=== PATIENT | female | born 1990 | race Two or more races ===

== ENCOUNTER 2022-01-24 11:20 | Outpatient (REF) | payer OTHER, SELFPAY ==
[2022-01-24 14:10] LABS: MANUAL DIFF FLAG NO
[2022-01-24 14:27] LABS: Basophils Percent Auto 0.3 % (0-2); Eosinophils Absolute Auto 0.2 X10*3/uL (0.0-0.4); Eosinophils Percent Auto 1.8 % (0-4); Hematocrit 41.5 % (37.0-47.0); Hemoglobin 13.1 g/dl (12.0-16.0); Imm Gran Abs Auto 0.03 X10*3/uL (0.00-0.03); Imm Gran Pct Auto 0.3 % (0.0-0.4); Lymphocytes Absolute Auto 2.4 X10*3/uL (1.2-4.9); Lymphocytes Percent Auto 27.5 % (20-40); Mean Corpuscular HGB Conc 31.6 g/dl (31.0-35.0); Mean Corpuscular Hemoglobin 27.6 pg (27.0-33.0); Mean Corpuscular Volume 87.4 fL (80.0-98.0); Mean Platelet Volume 10.2 fL (9.4-12.3); Monocytes Absolute Auto 0.8 X10*3/uL (0.1-1.2); Monocytes Percent Auto 8.6 % (2-11); Neutrophils Absolute Auto 5.4 x10*3/uL (2.0-8.3); Neutrophils Percent Auto 61.5 % (45-73); Platelet Count 244 X10*3/uL (160-400); Red Blood Count 4.75 X10*6/uL (4.20-5.50); Red Cell Distribution Width 13.6 % (11.0-16.0); White Blood Count 8.9 X10*3/uL (4.8-10.8)
[2022-01-24 16:48] LABS: Alanine Aminotransferase 17 U/L (0-31); Albumin Level 4.2 g/dL (3.5-5.0); Alkaline Phosphatase 47 U/L (39-117); Anion Gap 10 (12-20); Aspartate Amino Transferase 17 U/L (5-31); Bilirubin Total 0.3 mg/dL (0.0-1.0); Blood Urea Nitrogen 8 mg/dL (9-16); Carbon Dioxide 28 mmol/L (22-29); Chloride 103 mmol/L (96-108); Cholesterol 160 mg/dL; Estimated Glomerular Filt Rate > 60; Glucose Fasting 82 mg/dL (60-99); HDL Cholesterol 54 mg/dL; LDL Cholesterol Calculated 95 mg/dl; Potassium 4.1 mmol/L (3.3-5.1); Sodium 137 mmol/L (135-145); TSH reflex Free T4 1.27 uIU/mL (0.32-4.0); Total Protein 7.4 g/dL (6.5-8.0); Triglycerides 57 mg/dL
[2022-01-27 18:08] LABS: Herpes Simplex Type 1 IgG <0.90 index; Herpes Simplex Type 2 IgG 5.81 index
== END 2022-01-24 11:21 | disposition home or self-care (01) ==
LOC: HO.HMGCLDS 11:20
PROVIDERS: PCP Internal Medicine; Visit Provider Internal Medicine
DX: Z00.01 Encounter for general adult medical examination with abnormal findings (principal); E66.01 Morbid (severe) obesity due to excess calories; Z86.19 Personal history of other infectious and parasitic diseases
CPT/HCPCS: 36415; 80053; 80061; 84443; 85025; 86695; 86696

== ENCOUNTER 2022-10-24 07:49 | Outpatient (AMB) | payer BC, MEDICAID, SELFPAY ==
--- NOTE | 2022-10-24 07:37 | MHC.PC.OV ---
Intake Visit Reasons: discuss increase anxiety meds/[phone] iphone Allergies No Known Allergies Allergy (Verified 01/24/22 11:10) Medication List - Last Reconciled 10/24/22 by Debbie Pink MD escitalopram oxalate 10 mg PO DAILY valacyclovir 500 mg PO Q12H Tobacco use date assessed: 01/24/22 HPI discuss increase anxiety meds/[phone] iphone HPI Details Patient is 32-year-old female this is a telemedicine video conference Patient suffers from anxiety, she was last seen January of last year Patient was under the impression that she just need to be seen annually. She is currently taking Lexapro 5 mg Patient recently moved she is also having a new relationship and having other stressors in her life Feeling more anxious and gets angry easily. She is requesting if we can increase the medication to 10 mg. I have sent 10 mg tablets for the patient We will book another follow-up appointment in 3 weeks. PFSH Family History Father Mental health disorder Social History Housing: House Patient Tobacco Use Status: Never used Tobacco e-Cigarette/Vaping Use: Currently Using Current occupational status: employed Cognitive needs: No Hearing needs: No Vision needs: Yes (contacts) Questionnaire Thrive Questionnaire Date Thrive assessed: 01/24/22 ALECIA-7 AMB Questionnaire ALECIA-7 Date ALECIA - 7 assessed: 01/24/22 Source: Developed by Drs. Carlos Villagran, Lisa Sin, Alexandro Martin and colleagues, with an educational alex from [employer]. Review of Systems Const Denies chills and Denies fever(s) ENT Denies epistaxis and Denies nasal discharge Card Denies chest pain Resp Denies chest congestion, Denies cough and Denies hemoptysis GI Denies diarrhea and Denies nausea Skin/Breast Denies rash Neuro Reports no additional complaints Psych Reports no additional complaints Endo Reports no additional complaints Physical exam (Primary Care) Tobacco/Smoking Status: Tobacco use Status Tobacco use date assessed 01/24/22 10/24/22 07:41 Patient Tobacco Use Status Never used Tobacco 10/24/22 07:41 e-Cigarette/Vaping Use Currently Using 10/24/22 07:41 Thrive Assessment: Date of Thrive Assessment Date Thrive assessed 01/24/22 10/24/22 07:41 Assessment and Plan Assessment & Plan (1) Anxiety, generalized: Code(s): F41.1 - Generalized anxiety disorder (2) Excessive anger: Code(s): R45.4 - Irritability and anger (3) Stress: Code(s): F43.9 - Reaction to severe stress, unspecified Plan Patient is 32-year-old female this is a telemedicine video conference Patient suffers from anxiety, she was last seen January of last year Patient was under the impression that she just need to be seen annually. She is currently taking Lexapro 5 mg Patient recently moved she is also having a new relationship and having other stressors in her life Feeling more anxious and gets angry easily. She is requesting if we can increase the medication to 10 mg. I have sent 10 mg tablets for the patient We will book another follow-up appointment in 3 weeks. Medications: Changed From escitalopram oxalate (Lexapro) 5 mg PO DAILY 30 tabs 0RF To escitalopram oxalate 10 mg PO DAILY 30 tabs 0RF Coding Level of Care Code Tele Est Pt Level 3 (81688) Diagnoses Anxiety, generalized F41.1 Excessive anger R45.4 Stress F43.9
== END 2022-10-24 08:48 | disposition home or self-care (01) ==
LOC: HO.HMGC 07:49
PROVIDERS: PCP Internal Medicine; Visit Provider Internal Medicine
DX: F41.1 Generalized anxiety disorder (principal); R45.4 Irritability and anger; F43.9 Reaction to severe stress, unspecified
CPT/HCPCS: 99213

== ENCOUNTER 2022-11-14 07:37 | Outpatient (AMB) | payer BC, MEDICAID, SELFPAY ==
--- NOTE | 2022-11-14 07:38 | MHC.PC.OV ---
Intake Visit Reasons: Follow up Allergies No Known Allergies Allergy (Verified 11/14/22 07:42) Medication List - Last Reconciled 11/14/22 by Debbie Pink MD escitalopram oxalate 10 mg PO DAILY valacyclovir 500 mg PO Q12H Tobacco use date assessed: 11/14/22 Dental Screening Dental Screen Date: 11/14/22 Did you have a dental visit in the last 12 months?: Yes Did you have a dental problem in the last 6 months where you did not have access to dental care?: No Was dental information given to patient?: Patient has dentist HPI Follow up HPI Details Patient is a 32-year-old female this is a telemedicine we do conference follow-up Patient verbalized to feeling more anxious and depressed and having difficulty controlling her emotions last visit 3 weeks ago I started her on Lexapro 5 mg she is not taking 10. She is feeling will better but we can titrate the dose further as per patient's wishes. I have sent 20 mg tablets patient may finish the 1 she has at home by taking 1.5 tablet that will be 15 mg and then start 20 mg. She will get back to me if there are any problems taking 20 mg. Otherwise she is to continue that for next 4 months We will make a follow-up appointment in 4 months. PFSH Family History Father Mental health disorder Social History Housing: House Patient Tobacco Use Status: Never used Tobacco e-Cigarette/Vaping Use: Currently Using Current occupational status: employed Cognitive needs: No Hearing needs: No Vision needs: Yes (contacts) Questionnaire PHQ-9 Over the last 2 weeks, how often have you been bothered by any of the following problems? 1. Little interest or pleasure in doing things: several days 2. Feeling down, depressed, or hopeless: not at all 3. Trouble falling or staying asleep, or sleeping too much: several days 4. Feeling tired or having little energy: not at all 5. Poor appetite or overeating: not at all 6. Feeling bad about yourself - or that you are a failure or have let yourself or your family down: not at all 7. Trouble concentrating on things, such as reading the newspaper or watching television: not at all 8. Moving or speaking so slowly that other people could have noticed. Or the opposite - being so fidgety or restless that you have been moving around a lot more than usual: not at all 9. Thoughts that you would be better off or of hurting yourself in some way: not at all Total score: 2 Depression Screening Interpretation: Negative 86167 - PHQ-9 Billing: Yes Source: Developed by Drs. Carlos Villagran, Lisa Sin, Alexandro Martin and colleagues, with an educational alex from [employer]. Thrive Questionnaire Date Thrive assessed: 11/14/22 I am a: Patient What is your living situation today?: I have a steady place to live Within the past 12 months, did the food you bought not last and you didn't have the money to get more?: Never true Within the past 12 months, did you worry whether your food would run out before you got money to buy more?: Never true Do you have trouble paying for medicines?: No Do you have trouble getting transportation to medical appointments?: No Do you have trouble paying your heating and electricity bill?: No Do you have trouble taking care of your child, family member or friend?: No Do you have trouble with day-to-day activities such as bathing, preparing meals, shopping, managing finances, etc.?: No Are you currently unemployed and looking for a job?: No Are you interested in more education?: No Please select the resources that you would like help with: None Currently or been in a relationship where the following occur: no concerns reported AUDIT C Alcohol Use Questionnaire (AUDIT-C) 1. How often do you have a drink containing alcohol?: Monthly or less 2. How many drinks containing alcohol do you have on a typical day when you are drinking?: 1 or 2 3. How often do you have six or more drinks on one occasion?: Never Total Score: 1 ALECIA-7 AMB Questionnaire ALECIA-7 Date ALECIA - 7 assessed: 11/14/22 Feeling nervous, anxious, or on edge: 0 = Not at all Not being able to stop or control worryin = Not at all Worrying too much about different things: 0 = Not at all Trouble relaxin = Not at all Being so restless that it is hard to sit still: 0 = Not at all Becoming easily annoyed or irritable: 0 = Not at all Feeling afraid as if something awful might happen: 0 = Not at all Total ALECIA-7 score (0-4 normal; 5-9 mild; 10-14 moderate; 15-21 severe): 0 Source: Developed by Drs. Carlos Villagran, Lisa Sin, Alexandro Martin and colleagues, with an educational alex from [employer]. Review of Systems Const Denies chills and Denies fever(s) ENT Denies epistaxis and Denies nasal discharge Card Denies chest pain Resp Denies chest congestion, Denies cough and Denies hemoptysis GI Denies diarrhea and Denies nausea Skin/Breast Denies rash Neuro Reports no additional complaints Psych Reports no additional complaints Endo Reports no additional complaints Physical exam (Primary Care) Tobacco/Smoking Status: Tobacco use Status Tobacco use date assessed 11/14/22 11/14/22 07:43 Patient Tobacco Use Status Never used Tobacco 11/14/22 07:43 e-Cigarette/Vaping Use Currently Using 11/14/22 07:38 PHQ-9: PHQ-9 Score PHQ-9: Total score 2 11/14/22 07:43 Depression Screening Interpretation: Negative Thrive Assessment: Date of Thrive Assessment Date Thrive assessed 11/14/22 11/14/22 07:43 Currently or been in a relationship where the following occur: no concerns reported Telehealth Telehealth Location of provider rendering services: practice address Location of patient: address on file Patient Identification confirmed using: Name, : Yes Telehealth method: video Patient verbally consented to treatment: Yes Patient verbally consented to billing insurance company: Yes Patient informed of any privacy concerns related to visit: Yes Minutes spent on Phone/Video with Pt.: 13 Assessment and Plan Assessment & Plan (1) Anxiety, generalized: Code(s): F41.1 - Generalized anxiety disorder (2) Excessive anger: Code(s): R45.4 - Irritability and anger Plan Patient is a 32-year-old female this is a telemedicine we do conference follow-up Patient verbalized to feeling more anxious and depressed and having difficulty controlling her emotions last visit 3 weeks ago I started her on Lexapro 5 mg she is not taking 10. She is feeling will better but we can titrate the dose further as per patient's wishes. I have sent 20 mg tablets patient may finish the 1 she has at home by taking 1.5 tablet that will be 15 mg and then start 20 mg. She will get back to me if there are any problems taking 20 mg. Otherwise she is to continue that for next 4 months We will make a follow-up appointment in 4 months. Medications: New escitalopram oxalate (Lexapro) 20 mg PO DAILY 90 tabs 0RF Discontinued escitalopram oxalate Discontinued Reason: Doctor's Order 10 mg PO DAILY 30 tabs 0RF Coding Level of Care Code Tele Est Pt Level 3 (49154) Diagnoses Anxiety, generalized F41.1 Excessive anger R45.4
== END 2022-11-14 08:37 | disposition home or self-care (01) ==
PROVIDERS: PCP Internal Medicine; Visit Provider Internal Medicine
DX: F41.1 Generalized anxiety disorder (principal); R45.4 Irritability and anger
CPT/HCPCS: 99213

== ENCOUNTER 2022-12-19 11:04 | Outpatient (AMB) | payer BC, MEDICAID, SELFPAY ==
[2022-12-19 11:05] VITALS: BP 128/86; PULSE 83; O2SAT 97; BMI 40.1
--- NOTE | 2022-12-19 11:05 | MHC.PC.OV ---
Vital Signs 12/19/22 11:05 Height 5 ft 5 in Weight 241 lb BMI 40.1 BP 128/86 Blood Pressure Location Rt brachial Position Sitting Pulse 83 Pulse Source Pulse Oximeter Pulse Oximetry (%) 97 Oxygen Delivery Method Room Air Intake Visit Reasons: pe Allergies No Known Allergies Allergy (Verified 12/19/22 11:06) Medication List - Last Reconciled 12/19/22 by Debbie Pink MD escitalopram oxalate (Lexapro) 20 mg PO DAILY valacyclovir 500 mg PO Q12H Tobacco use date assessed: 12/19/22 Dental Screening Dental Screen Date: 12/19/22 Did you have a dental visit in the last 12 months?: Yes Did you have a dental problem in the last 6 months where you did not have access to dental care?: No Was dental information given to patient?: Patient has dentist HPI pe HPI Details Patient is 32-year-old female came in today for physical examination Anxiety and depression is better she is now on Lexapro 20 mg which is a good dose for her I have sent refill for another 90 days patient will return in 6 months for follow-up on that or earlier if needed She is also requesting a script for hydrocortisone 2.5 % that she use on [employer] [facility] That was started by the user experience architect. BMI is elevated patient need to lose weight she is working on it. Labs order placed to be done fasting by the end of January Patient is established with OBGYN, breast exam and Pap smear through them Physical exam 1 year, follow-up 6 months PFSH Family History Father Mental health disorder Social History Housing: House Patient Tobacco Use Status: Never used Tobacco e-Cigarette/Vaping Use: Currently Using service: No Current occupational status: employed Cognitive needs: No Hearing needs: No Vision needs: Yes (contacts) Questionnaire PHQ-9 Over the last 2 weeks, how often have you been bothered by any of the following problems? 1. Little interest or pleasure in doing things: not at all 2. Feeling down, depressed, or hopeless: not at all 3. Trouble falling or staying asleep, or sleeping too much: several days 4. Feeling tired or having little energy: several days 5. Poor appetite or overeating: not at all 6. Feeling bad about yourself - or that you are a failure or have let yourself or your family down: several days 7. Trouble concentrating on things, such as reading the newspaper or watching television: several days 8. Moving or speaking so slowly that other people could have noticed. Or the opposite - being so fidgety or restless that you have been moving around a lot more than usual: not at all 9. Thoughts that you would be better off or of hurting yourself in some way: not at all Total score: 4 Depression Screening Interpretation: Negative Depression Screening Done: Yes 49348 - PHQ-9 Billing: Yes Source: Developed by Drs. Carlos Villagran, Lisa Sin, Alexandro Martin and colleagues, with an educational alex from [employer]. Thrive Questionnaire Date Thrive assessed: 12/19/22 I am a: Patient What is your living situation today?: I have a steady place to live Within the past 12 months, did the food you bought not last and you didn't have the money to get more?: Never true Within the past 12 months, did you worry whether your food would run out before you got money to buy more?: Never true Do you have trouble paying for medicines?: No Do you have trouble getting transportation to medical appointments?: No Do you have trouble paying your heating and electricity bill?: No Do you have trouble taking care of your child, family member or friend?: No Do you have trouble with day-to-day activities such as bathing, preparing meals, shopping, managing finances, etc.?: No Are you currently unemployed and looking for a job?: No Are you interested in more education?: No AUDIT C Alcohol Use Questionnaire (AUDIT-C) 1. How often do you have a drink containing alcohol?: Monthly or less 2. How many drinks containing alcohol do you have on a typical day when you are drinking?: 1 or 2 3. How often do you have six or more drinks on one occasion?: Never Total Score: 1 Score Reviewed/Action Taken: No ALECIA-7 AMB Questionnaire ALECIA-7 Date ALECIA - 7 assessed: 12/19/22 Feeling nervous, anxious, or on edge: 0 = Not at all Not being able to stop or control worryin = Several days Worrying too much about different things: 1 = Several days Trouble relaxin = Several days Being so restless that it is hard to sit still: 0 = Not at all Becoming easily annoyed or irritable: 1 = Several days Feeling afraid as if something awful might happen: 1 = Several days Total ALECIA-7 score (0-4 normal; 5-9 mild; 10-14 moderate; 15-21 severe): 5 Source: Developed by Drs. Carlos Villagran, Lisa Sin, Alexandro Martin and colleagues, with an educational alex from [employer]. ALECIA-7 Assessment Billing ALECIA-7 Assessment Tool: ALECIA-7 Assessment 66409 Review of Systems Const Denies chills, Denies fever(s) and Denies headache(s) Eyes Denies blurry vision ENT Denies headache(s), Denies nasal discharge, Denies nasal obstruction, Denies odynophagia and Denies sinus pain Card Denies chest pain at rest and Denies chest pain with activity Resp Denies cough and Denies hemoptysis GI Denies diarrhea, Denies odynophagia, Denies vomiting and Denies hematemesis Reports as per HPI Musc Denies abnormal gait Skin/Breast Reports as per HPI Neuro Denies Neuro-related abnormal movements, Denies Abnormal speech present, Denies abnormal gait, Denies headache(s) and Denies Sensory deficit (Neuro) Psych Denies mood swings and Denies paranoia Endo Reports as per HPI Larry/Lymph Reports as per HPI Aller/Immun Reports as per HPI Physical exam (Primary Care) Vital Signs: Last Vital Signs Pulse 83 12/19/22 11:05 BP 128/86 12/19/22 11:05 Pulse Ox 97 12/19/22 11:05 Oxygen Delivery Method Room Air 12/19/22 11:05 BMI result Body Mass Index 40.1 Tobacco/Smoking Status: Tobacco use Status Tobacco use date assessed 12/19/22 12/19/22 11:09 Patient Tobacco Use Status Never used Tobacco 12/19/22 11:09 e-Cigarette/Vaping Use Currently Using 12/19/22 11:09 PHQ-9: PHQ-9 Score PHQ-9: Total score 4 12/19/22 11:39 Depression Screening Interpretation: Negative Thrive Assessment: Date of Thrive Assessment Date Thrive assessed 12/19/22 12/19/22 11:34 Const General: cooperative, comfortable and no acute distress Orientation/consciousness: patient oriented x3 HENMT Head: Yes normocephalic and Yes atraumatic Eyes General: appearance normal, both eyes and all related structures Pupils: Equal, round and reactive pupils present EOM: EOMs intact bilaterally Neck Neck: Yes supple and No lymphadenopathy Thyroid: Thyroid normal Lymphatic: no lymphadenopathy noted Resp Effort & Inspection: normal respiratory effort and able to speak in complete sentences Auscultation: clear to auscultation bilaterally Cardio Heart sounds: S1 normal heart sound present and S2 normal heart sound present GI Palpation (GI): Soft to palpation and nontender Auscultation: normal bowel sounds General: Yes no CVA tenderness Back/Spine/Pelvis Back: no CVA tenderness Skin General skin exam: elasticity normal and turgor normal Neuro General: patient oriented x3 and gait normal Cranial nerves: Yes Equal, round and reactive pupils present Speech: No Abnormal speech present Sensory Exam: No Sensory deficit (Neuro) Coordination: tandem gait normal and Romberg test negative Extrem General: Yes normal exam except as noted and No edema Assessment and Plan Assessment & Plan (1) Encounter for general adult medical examination with abnormal findings: Code(s): Z00.01 - Encounter for general adult medical examination with abnormal findings (2) Morbid obesity due to excess calories: Code(s): E66.01 - Morbid (severe) obesity due to excess calories (3) Anxiety, generalized: Code(s): F41.1 - Generalized anxiety disorder (4) Depression, major, recurrent, mild: Code(s): F33.0 - Major depressive disorder, recurrent, mild Plan Patient is 32-year-old female came in today for physical examination Anxiety and depression is better she is now on Lexapro 20 mg which is a good dose for her I have sent refill for another 90 days patient will return in 6 months for follow-up on that or earlier if needed She is also requesting a script for hydrocortisone 2.5 % that she use on [employer] [facility] That was started by the user experience architect. BMI is elevated patient need to lose weight she is working on it. Labs order placed to be done fasting by the end of January Patient is established with OBGYN, breast exam and Pap smear through them Physical exam 1 year, follow-up 6 months Orders: Orders Lipid Panel Today E66.01 - Morbid (severe) obesity due to excess calories, F41.1 - Generalized anxiety disorder, Z00.01 - Encounter for general adult medical examination with abnormal findings TSH reflex Free T4 Today E66.01 - Morbid (severe) obesity due to excess calories, F41.1 - Generalized anxiety disorder, Z00.01 - Encounter for general adult medical examination with abnormal findings Complete Blood Count Auto Diff Today E66.01 - Morbid (severe) obesity due to excess calories, F41.1 - Generalized anxiety disorder, Z00.01 - Encounter for general adult medical examination with abnormal findings Comprehensive [place]. Panel Fast Today E66.01 - Morbid (severe) obesity due to excess calories, F41.1 - Generalized anxiety disorder, Z00.01 - Encounter for general adult medical examination with abnormal findings Medications: New hydrocortisone 2.5% 1 appl topical BID PRN 30 grams 0RF skin irritation 30 days Refilled escitalopram oxalate (Lexapro) 20 mg PO DAILY 90 tabs 0RF Coding Level of Care Code Est Pt Prev Care 18-39y(66482) Diagnoses Encounter for general adult medical examination with abnormal findings Z00.01 Morbid obesity due to excess calories E66.01 Anxiety, generalized F41.1 Depression, major, recurrent, mild F33.0 Additional Codes ALECIA-7 Assessment Billing - ALECIA-7 Assessment Tool: ALECIA-7 Assessment [id number] ([id number])
== END 2022-12-19 13:43 | disposition home or self-care (01) ==
PROVIDERS: Visit Provider Internal Medicine
DX: Z00.00 Encounter for general adult medical examination without abnormal findings (principal); E66.01 Morbid (severe) obesity due to excess calories; F33.0 Major depressive disorder, recurrent, mild; Z68.41 Body mass index [BMI] 40.0-44.9, adult; F41.1 Generalized anxiety disorder
CPT/HCPCS: 99395

== ENCOUNTER 2023-02-06 07:43 | Outpatient (REF) | payer BC, MEDICAID, SELFPAY ==
[2023-02-06 11:09] LABS: MANUAL DIFF FLAG NO
[2023-02-06 11:15] LABS: Basophils Percent Auto 0.4 % (0-2); Eosinophils Absolute Auto 0.2 X10*3/uL (0.0-0.4); Eosinophils Percent Auto 2.3 % (0-4); Hematocrit 40.5 % (37.0-47.0); Hemoglobin 12.9 g/dl (12.0-16.0); Imm Gran Abs Auto 0.02 X10*3/uL (0.00-0.03); Imm Gran Pct Auto 0.3 % (0.0-0.4); Lymphocytes Absolute Auto 2.5 X10*3/uL (1.2-4.9); Lymphocytes Percent Auto 35.6 % (20-40); Mean Corpuscular HGB Conc 31.9 g/dl (31.0-35.0); Mean Corpuscular Hemoglobin 27.9 pg (27.0-33.0); Mean Corpuscular Volume 87.5 fL (80.0-98.0); Mean Platelet Volume 10.7 fL (9.4-12.3); Monocytes Absolute Auto 0.6 X10*3/uL (0.1-1.2); Monocytes Percent Auto 8.3 % (2-11); Neutrophils Absolute Auto 3.7 x10*3/uL (2.0-8.3); Neutrophils Percent Auto 53.1 % (45-73); Platelet Count 210 X10*3/uL (160-400); Red Blood Count 4.63 X10*6/uL (4.20-5.50); Red Cell Distribution Width 13.3 % (11.0-16.0)
[2023-02-06 11:34] LABS: Alanine Aminotransferase 15 U/L (0-31); Albumin Level 4.1 g/dL (3.5-5.0); Alkaline Phosphatase 49 U/L (39-117); Anion Gap 11 (12-20); Aspartate Amino Transferase 20 U/L (5-31); Bilirubin Total 0.2 mg/dL (0.0-1.0); Blood Urea Nitrogen 14 mg/dL (9-16); Calcium 9.4 mg/dL (8.4-10.2); Carbon Dioxide 30 mmol/L (22-29); Chloride 102 mmol/L (96-108); Cholesterol 155 mg/dL (<200); Estimated Glomerular Filt Rate > 60; Glucose Fasting 83 mg/dL (60-99); HDL Cholesterol 58 mg/dL (>40); LDL Cholesterol Calculated 84 mg/dL (<100); Potassium 3.7 mmol/L (3.3-5.1); Sodium 139 mmol/L (135-145); Total Protein 7.9 g/dL (6.5-8.0); Triglycerides 67 mg/dL (<150)
[2023-02-06 11:49] LABS: TSH reflex Free T4 2.14 uIU/mL (0.32-4.0)
== END 2023-02-06 07:44 | disposition home or self-care (01) ==
LOC: HO.HMGCLDS 07:43
PROVIDERS: PCP Internal Medicine; Visit Provider Internal Medicine
DX: Z00.01 Encounter for general adult medical examination with abnormal findings (principal); E66.01 Morbid (severe) obesity due to excess calories; F41.1 Generalized anxiety disorder
CPT/HCPCS: 36415; 80053; 80061; 84443; 85025

== ENCOUNTER 2023-03-17 15:02 | Outpatient (AMB) | payer BC, MEDICAID, SELFPAY ==
[2023-03-17 15:05] VITALS: BP 126/82; PULSE 81; O2SAT 99; BMI 40.8
--- NOTE | 2023-03-17 15:05 | A.OFFPC_ITS ---
Vital Signs 03/17/23 15:05 Height 5 ft 5 in Weight 245 lb 8 oz BMI 40.8 BP 126/82 Blood Pressure Location Rt brachial Position Sitting Pulse 81 Pulse Source Pulse Oximeter Pulse Oximetry (%) 99 Oxygen Delivery Method Room Air Intake Visit Reasons: 4 month follow up Allergies No Known Allergies Allergy (Verified 03/17/23 15:05) Medication List - Last Reconciled 03/17/23 by Debbie Pink MD escitalopram oxalate (Lexapro) 20 mg PO DAILY hydrocortisone 2.5% 1 appl topical BID PRN 30 days valacyclovir 500 mg PO Q12H Tobacco use date assessed: 03/17/23 HPI 4 month follow up HPI Details Patient is 32-year-old female came in today for regular six-month follow-up appointment Patient is doing well with Lexapro 20 mg anxiety and depression is stable No suicidal ideations Patient would like to continue with medication. She has appointment in 6 months physical examination. Labs were done in January reviewed. PFSH Family History Father Mental health disorder Social History Housing: House Patient Tobacco Use Status: Never used Tobacco e-Cigarette/Vaping Use: Currently Using service: No Current occupational status: employed Cognitive needs: No Hearing needs: No Vision needs: Yes (contacts) Questionnaire Thrive Questionnaire Date Thrive assessed: 12/19/22 AUDIT C Alcohol Use Questionnaire (AUDIT-C) 1. How often do you have a drink containing alcohol?: Monthly or less 2. How many drinks containing alcohol do you have on a typical day when you are drinking?: 1 or 2 3. How often do you have six or more drinks on one occasion?: Never Total Score: 1 Score Reviewed/Action Taken: No ALECIA-7 AMB Questionnaire ALECIA-7 Date ALECIA - 7 assessed: 12/19/22 Source: Developed by Drs. Carlos Villagran, Lisa Sin, Alexandro Martin and colleagues, with an educational alex from [employer]. Review of Systems Const Denies chills and Denies fever(s) ENT Denies epistaxis and Denies nasal discharge Card Denies chest pain Resp Denies chest congestion, Denies cough and Denies hemoptysis GI Denies diarrhea and Denies nausea Skin/Breast Denies rash Neuro Reports no additional complaints Psych Reports no additional complaints Endo Reports no additional complaints Physical exam (Primary Care) Vital Signs: Last Vital Signs Pulse 81 03/17/23 15:05 BP 126/82 03/17/23 15:05 Pulse Ox 99 03/17/23 15:05 Oxygen Delivery Method Room Air 03/17/23 15:05 BMI result Body Mass Index 40.8 Tobacco/Smoking Status: Tobacco use Status Tobacco use date assessed 03/17/23 03/17/23 15:10 Patient Tobacco Use Status Never used Tobacco 03/17/23 15:10 e-Cigarette/Vaping Use Currently Using 03/17/23 15:10 Thrive Assessment: Date of Thrive Assessment Date Thrive assessed 12/19/22 03/17/23 15:10 Const General: cooperative, comfortable and no acute distress Orientation/consciousness: patient oriented x3 HENMT Head: Yes normocephalic Eyes General: appearance normal, both eyes and all related structures Neck Neck: Yes supple Resp Effort & Inspection: normal respiratory effort, no cough and no stridor Cardio Rhythm: regular rhythm Heart sounds: S1 normal heart sound present and S2 normal heart sound present Skin General skin exam: turgor normal Neuro General: patient oriented x3, tone normal and moves all extremities Extrem Right lower extremity: no edema Left lower extremity: no edema Assessment and Plan Assessment & Plan (1) Anxiety, generalized: Code(s): F41.1 - Generalized anxiety disorder (2) Depression, major, recurrent, mild: Code(s): F33.0 - Major depressive disorder, recurrent, mild (3) Morbid obesity due to excess calories: Code(s): E66.01 - Morbid (severe) obesity due to excess calories Plan Patient is 32-year-old female came in today for regular six-month follow-up appointment Patient is doing well with Lexapro 20 mg anxiety and depression is stable No suicidal ideations Patient would like to continue with medication. She has appointment in 6 months physical examination. Still struggling with weight Labs were done in January. Medications: Refilled escitalopram oxalate (Lexapro) 20 mg PO DAILY 90 tabs 1RF Coding Level of Care Code Est Pt Level 3 (23378) Diagnoses Anxiety, generalized F41.1 Depression, major, recurrent, mild F33.0 Morbid obesity due to excess calories E66.01
== END 2023-03-17 16:28 | disposition home or self-care (01) ==
PROVIDERS: PCP Internal Medicine; Visit Provider Internal Medicine
DX: F41.1 Generalized anxiety disorder (principal); F33.0 Major depressive disorder, recurrent, mild; E66.01 Morbid (severe) obesity due to excess calories; Z68.41 Body mass index [BMI] 40.0-44.9, adult
CPT/HCPCS: 99213

== ENCOUNTER 2023-10-02 14:59 | Outpatient (AMB) | payer MEDICAID, SELFPAY ==
[2023-10-02 15:01] VITALS: BP 126/88; PULSE 103; O2SAT 98; BMI 41.3
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
== END 2023-10-02 15:36 | disposition home or self-care (01) ==
PROVIDERS: PCP Internal Medicine; Visit Provider Internal Medicine
DX: Z00.00 Encounter for general adult medical examination without abnormal findings (principal); F41.1 Generalized anxiety disorder; R45.4 Irritability and anger; F33.0 Major depressive disorder, recurrent, mild; Z3A.18 18 weeks gestation of pregnancy
CPT/HCPCS: 99213; 99395

== ENCOUNTER 2024-01-28 13:05 | Outpatient (AMB) | payer MEDICAID, SELFPAY ==
--- NOTE | 2024-01-28 13:43 | MHC.OFFWIV ---
Intake Vital Signs 01/28/24 13:44 Height 5 ft 5 in Weight 275 lb BMI 45.8 BP 118/80 Blood Pressure Location Lt brachial Position Sitting Pulse 103 H Pulse Source Pulse Oximeter Pulse Oximetry (%) 98 Oxygen Delivery Method Room Air Intake Visit Reasons: EP LT ear pain/q-tip stuck?? Intake Note: Patient here for difficulty hearing out of left ear which started last week. Patient Tobacco Use Status: Never used Tobacco Allergies No Known Allergies Allergy (Verified 01/28/24 13:45) Do you need a note to return to daycare/school/sports/work: No HPI HPI Comments History of Present Illness Details History The patient is a 33-year-old female presenting with hearing loss and discomfort in the left ear. She reported first experiencing these symptoms last week during an episode of illness, during which she frequently cleaned her ears. The primary symptom has persisted, characterized by pressure and impaired hearing in the left ear, despite recovery from her prior illness. She initially suspected a foreign body, specifically a cotton swab tip, might be lodged in the ear canal. Upon examination, there was no foreign body observed, but a significant ear infection was identified. The patient is currently 34 weeks and six days , impacting the choice of therapeutic agents permissible for treatment. Physical Exam General: Cooperative, healthy appearing, comfortable and no acute distress Orientation/consciousness: Patient oriented x3 Limitations: , 34 weeks and 6 days Head: Normal to inspection Ears: Hearing impaired in the left ear due to infection, external ears normal, left TM with purulent effusion, right TM normal, EAC normal bilaterally Nose: Normal external nose present, Normal nares present and No nasal discharge present Face and sinus: Normal facial exam Eyes: Appearance normal, both eyes and all related structures Neck: Normal visual inspection Respiratory: Normal respiratory effort, Skin: No rashes or lesions noted Neuro: Patient oriented x3 Extremities: Normal to inspection and Yes no clubbing, cyanosis or edema PFSH Family History Father Mental health disorder Social History Housing: House Patient Tobacco Use Status: Never used Tobacco e-Cigarette/Vaping Use: Currently Using service: No Current occupational status: employed Cognitive needs: No Hearing needs: No Vision needs: Yes (contacts) Review of Systems Const All systems reviewed & are unremarkable except as noted in HPI and below Physical Exam Vital Signs: Last Vital Signs Pulse 113 H 01/28/24 13:44 BP 118/80 01/28/24 13:44 Pulse Ox 98 01/28/24 13:44 Oxygen Delivery Method Room Air 01/28/24 13:44 BMI result Body Mass Index 45.8 Assessment & Plan Assessment & Plan (1) Otitis media: Code(s): H66.90 - Otitis media, unspecified, unspecified ear Qualifiers: Otitis media type: suppurative Chronicity: acute Laterality: left Recurrence: non-recurrent Spontaneous tympanic membrane rupture: without spontaneous rupture Qualified Code(s): H66.002 - Acute suppurative otitis media without spontaneous rupture of ear drum, left ear Plan: - The diagnosis of Acute Otitis Media in the left ear was confirmed. - Prescribe Amoxicillin for 5 to 7 days, assessing progress after 5 days and potentially discontinuing if symptoms have sufficiently resolved. - Discussed the natural course of fluid resolution and comfort measures given the purulent effusion. - Prescription was sent to [facility] on [address], with instructions to allow time for the pharmacy to fill the medication. Patient was informed and verbally consented to the use of an ambient scribe for clinic note documentation during this visit Medications: New amoxicillin 875 mg PO Q12H 7 days 14 tabs 0RF Coding Level of Care Code Est Pt Level 3 (18608) Diagnoses Non-recurrent acute suppurative otitis media of left ear without spontaneous rupture of tympanic membrane H66.002 Otitis media type: suppurative Chronicity: acute Laterality: left Recurrence: non-recurrent Spontaneous tympanic membrane rupture: without spontaneous rupture
[2024-01-28 13:44] VITALS: BP 118/80; PULSE 103; O2SAT 98; BMI 45.8
== END 2024-01-28 14:54 | disposition home or self-care (01) ==
PROVIDERS: PCP Internal Medicine; Visit Provider Physician Assistant
DX: H66.002 Acute suppurative otitis media without spontaneous rupture of ear drum, left ear (principal)

== ENCOUNTER → 2024-01-28 13:05 | Outpatient (BNVA) | payer OTHER, SELFPAY | PROVIDERS: PCP Internal Medicine; Visit Provider Physician Assistant | DX: H66.002 Acute suppurative otitis media without spontaneous rupture of ear drum, left ear (principal) | CPT/HCPCS: 99212 ==

== ENCOUNTER 2025-02-14 15:17 | Outpatient (AMB) | payer OTHER, SELFPAY ==
--- OUTSIDE RECORDS SUMMARY | 2024-04-12 06:00 | XMS_ITS ---
Author Organization [employer] Address [address] [address] Care Team Providers Care Flat Cutter Name Role Phone SWIFTBUD Unavailable [phone] REASON FOR VISIT OCP OPTIONS Encounters Encounter Location Date Provider Diagnosis [facility] [address] [address] 04/12/2024 BUD SWIFT Plan Of Treatment No Information Progress Notes * YOELURVASHIJODY SmithADOB:1990 (34 yo F)Acc No.[id number]:04/12/2024 PROGRESS NOTES Patient: PANCHO HAUSER Provider: Ave SWIFT MD :1990 A ge:33 Y S ex:Female Date:04/12/2024 Address:[address] [place] [address], [id number] Subjective: * Chief Complaints: * 1 . OCP OPTIONS. * Medical History: Objective: * Vitals: Assessment: Plan: * Treatment: * Images: Billing Information: * Visit Code: * Procedure Codes: * Electronic signature of BUD SWIFT MD on 02/14/2025 at 06:42 PM EST Sign off status: Pending * Provider: Ave SWIFT MD Date: 0 04/12/2024 Generated for Floresi ng/Fayarag/eTransmitting on: 1 06:42 PM EST
[2025-02-14 15:20] VITALS: BP 120/80; PULSE 77; RESP 18; O2SAT 98; BMI 41.3
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
--- OUTSIDE RECORDS SUMMARY | 2025-02-14 18:42 | XMS_ITS | Clinical Summary ---
Author Organization [facility] ity Address [address] [place] [address] Care Team Providers Care Care Worker Name Role Phone Unavailable Primary Care Provider Unavailabl e Social History Tobacco Use Types Packs/Day Years Used Date Smoking Tobacco: Never Assessed Comments Unknown Sex and Gender Information Value Date Recorded Sex Assigned at Not on file Legal Sex Female 6:41 AM EST Gender Identity Not on file Sexual Orientation Not on file Plan of Treatment Health Maintenance Due Date Last Done Comments DTaP,Tdap,and Td Vaccines (1 - Tdap) 10/05/2011 Hepatitis B Vaccines (1 of 3 - 19+ 3-dose series) 10/05/2011 Cervical Cancer Screening: P ap Smear 2013 HPV Vaccines (1 - 3-dose SCD M series) 10/05/2019 HIV Screening 01/19/2022 Hepatitis C Screening 01/19/2022 Social Influencers of Health Screening 01/19/2022 Depression Screening 02/17/2024 COVID-19 Vaccine (1 - 2024-2 6 season) 2024 Influenza Vaccine (#1) 2024 RSV Immunization Adult Patie nts (1 - 1-dose 75+ series) 10/05/2067 HIB Vaccines Aged Out No longer eligi ble based on patient's age to complete this topic Hepatitis A Vaccines Aged Out No long er eligible based on patient's age to complete this topic IPV Vaccines Aged Out No longer eligi ble based on patient's age to complete this topic MMR Vaccines Aged Out No longer eligi ble based on patient's age to complete this topic Meningococcal ACWY Vaccine Aged Out N o longer eligible based on patient's age to complete this topic Meningococcal B Vaccine Aged Out No l onger eligible based on patient's age to complete this topic Pneumococcal Vaccine: Pediat rics (0 to 5 Years) and At-Risk Patients (6 to 49 Years) Aged Out No longer eligible b ased on patient's age to complete this topic RSV Immunization Patients [place] 20 months Aged Out No longer eligible b ased on patient's age to complete this topic Varicella Vaccines Aged Out No longer eligible based on patient's age to complete this topic
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
--- OUTSIDE RECORDS SUMMARY | 2025-02-14 18:42 | XMS_ITS | Clinical Summary ---
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 Role Phone Unavailable Primary Care Provider Unavailabl e Allergies No known active allergies Medications No known medications Social History Tobacco Use Types Packs/Day Years Used Date Smoking Tobacco: Never Assessed Sex and Gender Information Value Date Recorded Sex Assigned at Not on file Gender Identity Not on file Sexual Orientation Not on file Last Filed Vital Signs Vital Sign [place] Time Taken Comments Blood Pressure 140/89 10/02/2020 12:18 AM EDT Pulse 115 10/02/2020 12:18 AM EDT Temperature 37.1 C (98.8 F) 10/02/2020 12:18 AM EDT Respiratory Rate 21 10/02/2020 12:18 AM EDT Oxygen Saturation 96% 10/02/2020 12:18 AM EDT Inhaled Oxygen Concentration - - Weight 108.9 kg (240 lb) 10/02/2020 12:18 AM EDT Height 165.1 cm (5' 5 ) 10/02/2020 12:18 AM EDT Body Mass Index 39.94 10/02/2020 12:18 AM EDT Plan of Treatment Not on file
== END 2025-02-14 15:39 | disposition home or self-care (01) ==
LOC: HO.HMCC 15:18
PROVIDERS: PCP Internal Medicine; Visit Provider Internal Medicine
DX: R21 Rash and other nonspecific skin eruption (principal); F41.1 Generalized anxiety disorder; F33.0 Major depressive disorder, recurrent, mild; R45.4 Irritability and anger

== ENCOUNTER → 2025-02-14 15:17 | Outpatient (BNVA) | payer OTHER, SELFPAY | PROVIDERS: PCP Internal Medicine; Visit Provider Internal Medicine | DX: L30.9 Dermatitis, unspecified (principal); F43.23 Adjustment disorder with mixed anxiety and depressed mood; F33.0 Major depressive disorder, recurrent, mild; R45.4 Irritability and anger; Z13.31 Encounter for screening for depression; Z13.39 Encounter for screening examination for other mental health and behavioral disorders; Z79.899 Other long term (current) drug therapy | CPT/HCPCS: 96127; 99212 ==